=== PATIENT | male | born 1950 | race Caucasian/White ===

== ENCOUNTER → 2016-09-05 | Outpatient (CLI) | payer MEDICARE ==
[2015-09-25 16:35] VITALS: BP 125/81
[~2016-09-05] MED LIST: ASPI81TA50 PO; METF500T4 PO; SIMV10TA3 PO
--- NOTE | 2016-09-05 09:20 | KCIC ---
Indication: Right upper quadrant abdominal pain. The pancreas was poorly visualized. The inferior vena cava and proximal aorta were also poorly visualized due to overlying bowel gas. Mid and distal aorta are normal caliber without evidence of aneurysm. The liver is enlarged at 16.9 cm. There is diffuse increased echogenicity consistent with fatty infiltration. There are multiple liver cysts present. The largest appears to be septated measuring 3.9 cm in diameter. The portal vein is patent. Gallbladder is without stones or sludge. No wall thickening or pericholecystic fluid is seen. There is no biliary ductal dilatation. Right kidney is unremarkable. There is no ascites. IMPRESSION: 1. Hepatomegaly and fatty infiltration of the liver. There are multiple liver cysts present as well. 2. No evidence of cholelithiasis or acute cholecystitis. Electronically signed by: James Bush MD (09/05/2016 9:16 AM)
== END | disposition home or self-care (01) ==
LOC: KCIC US 07:29
PROVIDERS: ATTEND Nurse Practitioner Family
DX: R10.11 Right upper quadrant pain (principal); K76.0 Fatty (change of) liver, not elsewhere classified; R16.0 Hepatomegaly, not elsewhere classified
CPT/HCPCS: 76705

== ENCOUNTER → 2017-02-14 | Outpatient (CLI) | payer MEDICARE ==
[2015-09-25 16:35] VITALS: BP 125/81
--- NOTE | 2017-02-14 12:01 | KCIC ---
EXAM: Chest, 2 views. HISTORY: Cough. COMPARISON: 02/11/2017 FINDINGS: Frontal and lateral views of the chest are obtained. There is persistent right upper lobe opacity superimposed on coarse diffuse increased interstitial markings. There is no consolidation, effusion or pneumothorax. The heart is normal in size. There is biapical pleural parenchymal scarring. IMPRESSION: Stable right upper lobe opacity possibly due to focal pneumonic infiltrate. This is superimposed on suspected chronic interstitial changes. Continued short-term follow-up is recommended to confirm resolution and exclude underlying neoplasm. Electronically signed by: Lisset Pickens MD (02/14/2017 11:58 AM) [facility]
== END | disposition home or self-care (01) ==
LOC: KCIC 11:11
PROVIDERS: ATTEND Nurse Practitioner Family
DX: R91.8 Other nonspecific abnormal finding of lung field (principal); R05 Cough; R93.8 Abnormal findings on diagnostic imaging of other specified body structures
CPT/HCPCS: 71020

== ENCOUNTER → 2017-02-18 | Outpatient (CLI) | payer MEDICARE ==
[2015-09-25 16:35] VITALS: BP 125/81
--- NOTE | 2017-02-18 12:35 | KCIC ---
CT chest without contrast History: Chronic cough.. 35 year smoking history. Abnormality on x-ray. Technique: No intravenous contrast per request. Multiplanar reformatted images were obtained. Comparison: None are available Exposure: One or more of the following individualized dose reduction techniques were utilized for this examination: 1. Automated exposure control 2. Adjustment of the mA and/or kV according to patient size 3. Use of iterative reconstruction technique. Findings: Vascular structures: Limited exam without contrast. Mild atheromatous calcifications. No evidence of aneurysm. Lymph nodes: Moderate mediastinal lymph node enlargement, particularly around the trachea and aortopulmonary window. Largest measures 22 mm. Thyroid gland:Visualized aspect is unremarkable. Heart: Mild coronary calcification. Pleural spaces: No significant effusion Lungs: Interstitial infiltrates in the right upper lobe, right lower lobe and to a lesser extent right middle lobe. Interstitial and airspace infiltrate in the left lower lobe and to a much lesser extent left upper lobe and lingula. Noncalcified nodule identified in the right lower lobe, along the major fissure, measures 11 mm diameter. Trachea and central airways: Patent Bones: No destructive process identified. Degenerative changes of the spine. Upper abdomen: Slices obtained through the upper most abdomen are limited by the noncontrast technique. Multiple low-density lesions of the liver, measuring up to 4 cm diameter, and the larger of these demonstrate water density, compatible with cysts. Impression: 1. Moderate mediastinal lymph node enlargement, nonspecific but could be of neoplastic etiology. 2. 11 mm noncalcified pulmonary nodule in the right lower lobe, at the major fissure, potentially neoplastic. 3. Infiltrates in both lungs. Recommend short-term CT chest follow-up to document resolution. Electronically signed by: Mamadou Delatorre MD (02/18/2017 12:32 PM) [id number]
== END | disposition home or self-care (01) ==
LOC: KCIC CT 10:40
PROVIDERS: ATTEND Nurse Practitioner Family
DX: R59.9 Enlarged lymph nodes, unspecified (principal); Z87.891 Personal history of nicotine dependence
CPT/HCPCS: 71250

== ENCOUNTER → 2017-05-02 | Outpatient (CLI) | payer MEDICARE | END | disposition home or self-care (01) | LOC: KCIC CT 08:47 | DX: J84.9 Interstitial pulmonary disease, unspecified (principal); J47.0 Bronchiectasis with acute lower respiratory infection; I27.21 Secondary pulmonary arterial hypertension; Z87.891 Personal history of nicotine dependence | CPT/HCPCS: 71250 ==

== ENCOUNTER → 2017-05-20 | Day surgery (SDC) | payer MEDICARE ==
[~2017-05-20] MED LIST changes: -ASPI81TA50 PO; +EPINEPHrine 1 MG/ML VIAL SQ; +HYDROmorphone 2 MG/ML VIAL IV; +IV RINGERS,LACTATED 1000ML 1,000 ML IV; +LIDOCAINE 1% PF 2 ML VIAL. ID; -METF500T4 PO; +MIDAZOLAM HCL/PF 2 MG/2 ML VIAL. IV; +MORPHINE SULFATE 2 MG/ML DISP.SYRIN. IV; +ONDANSETRON PF 4 MG/2 ML VIAL. IV; +PROCHLORPERAZINE 10 MG/2 ML VIAL. IV; +PROPOFOL 20 ML IV; -SIMV10TA3 PO; +fentaNYL PF VIAL 100 MCG/2 ML VIAL IV
[2017-05-20 12:44] LABS: ADD MAN DIFF? NO
[2017-05-20 12:46] LABS: BASO # 0.1 x10^3/uL (0.0-0.2); BASO % 1 % (0-3); EOS # 0.4 x10^3/uL (0.0-0.7); EOS % 4 % (0-3); HEMATOCRIT 43.6 % (39.0-53.0); HEMOGLOBIN 14.8 g/dL (13.0-17.5); LYMPH # 1.8 x10^3/uL (1.0-4.8); LYMPH % 16 % (24-48); MEAN CORPUSCULAR HEMOGLOBIN 31 pg (25-35); MEAN CORPUSCULAR HGB CONC 34 g/dL (31-37); MEAN CORPUSCULAR VOLUME 91 fL (79-100); MONO # 0.8 x10^3/uL (0.0-1.1); MONO % 8 % (0-9); NEUT % 72 % (31-73); PLATELET COUNT 231 x10^3/uL (140-400); RED BLOOD COUNT 4.78 x10^6/uL (4.30-5.70); RED CELL DISTRIBUTION WIDTH 14.4 % (11.5-14.5); WHITE BLOOD COUNT 11.2 x10^3/uL (4.0-11.0)
[2017-05-20 12:52] LABS: POC GLUCOSE 201 mg/dL (70-99)
[2017-05-20] MEDS: IV RINGERS,LACTATED 1000ML 1,000 ML IV ×2 (12:53)
[2017-05-20 12:54] LABS: INR 1.1 (0.8-1.1); PROTHROMBIN TIME PATIENT 13.5 SEC (11.7-14.0)
[2017-05-20] MEDS: ALBUTEROL SULFATE 2.5 MG/3 ML NEBU. IH ×2 (13:10)
== END | disposition home or self-care (01) ==
LOC: SURG 11:55
DX: J84.9 Interstitial pulmonary disease, unspecified (principal); E11.42 Type 2 diabetes mellitus with diabetic polyneuropathy; J44.9 Chronic obstructive pulmonary disease, unspecified; I10 Essential (primary) hypertension; F41.9 Anxiety disorder, unspecified; F32.9 Major depressive disorder, single episode, unspecified; Z87.891 Personal history of nicotine dependence; Z79.899 Other long term (current) drug therapy; Z79.01 Long term (current) use of anticoagulants; Z86.69 Personal history of other diseases of the nervous system and sense organs; Z87.39 Personal history of other diseases of the musculoskeletal system and connective tissue; Z86.39 Personal history of other endocrine, nutritional and metabolic disease
CPT/HCPCS: 31622; 31624; 36415; 82962; 85025; 85610; 87070; 87102; 87116; 87205; 88112; 94640; J2704; J7613

== ENCOUNTER 2017-06-16 08:42 | Day surgery (SDC) | payer MEDICARE ==
[2017-06-16] MEDS ORDERED: fentaNYL PF VIAL 100 MCG/2 ML VIAL IV ×2 (09:00)
[2017-06-16] MEDS ORDERED: MIDAZOLAM HCL/PF 2 MG/2 ML VIAL. IV (09:00)
[2017-06-16] MEDS ORDERED: LIDOCAINE 1% PF 2 ML VIAL. ID (09:00)
[2017-06-16 09:43] LABS: ADD MAN DIFF? NO
[2017-06-16 09:45] LABS: BASO # 0.1 x10^3/uL (0.0-0.2); BASO % 1 % (0-3); EOS # 0.5 x10^3/uL (0.0-0.7); EOS % 5 % (0-3); HEMATOCRIT 44.2 % (39.0-53.0); HEMOGLOBIN 14.9 g/dL (13.0-17.5); LYMPH # 1.9 x10^3/uL (1.0-4.8); LYMPH % 21 % (24-48); MEAN CORPUSCULAR HEMOGLOBIN 31 pg (25-35); MEAN CORPUSCULAR HGB CONC 34 g/dL (31-37); MEAN CORPUSCULAR VOLUME 91 fL (79-100); MONO # 0.7 x10^3/uL (0.0-1.1); MONO % 8 % (0-9); NEUT # 6.1 x10^3uL (1.8-7.7); NEUT % 65 % (31-73); PLATELET COUNT 203 x10^3/uL (140-400); RED BLOOD COUNT 4.87 x10^6/uL (4.30-5.70); RED CELL DISTRIBUTION WIDTH 12.9 % (11.5-14.5); WHITE BLOOD COUNT 9.3 x10^3/uL (4.0-11.0)
[2017-06-16] MEDS: IV RINGERS,LACTATED 1000ML 1,000 ML IV ×2 (09:46→13:48)
[2017-06-16 09:57] LABS: PARTIAL THROMBOPLASTIN TIME 21 SEC (24-38)
[2017-06-16 09:58] LABS: INR 1.1 (0.8-1.1); PROTHROMBIN TIME PATIENT 13.4 SEC (11.7-14.0)
[2017-06-16 10:02] LABS: ANION GAP 13 (6-14); BLOOD UREA NITROGEN 15 mg/dL (8-26); CALCIUM 9.4 mg/dL (8.5-10.1); CARBON DIOXIDE 26 mmol/L (21-32); CHLORIDE 100 mmol/L (98-107); CREATININE 1.1 mg/dL (0.7-1.3); GFR 66.4; GLUCOSE 329 mg/dL (70-99); POTASSIUM 3.6 mmol/L (3.5-5.1); SODIUM 139 mmol/L (136-145)
[2017-06-16] MEDS ORDERED: ROCURONIUM 50 MG/5 ML VIAL. (10:18)
[2017-06-16] MEDS ORDERED: PROPOFOL 20 ML IV (10:18)
[2017-06-16] MEDS ORDERED: ONDANSETRON PF 4 MG/2 ML VIAL. (10:18)
[2017-06-16] MEDS ORDERED: LIDOCAINE 2% PF Vial for OR 5 ML VIAL. (10:18)
[2017-06-16] MEDS ORDERED: DEXAMETHASONE SOD PHOS 20 MG/5 ML VIAL. (10:18)
[2017-06-16] MEDS ORDERED: fentaNYL PF VIAL 100 MCG/2 ML VIAL (10:18)
[2017-06-16] MEDS ORDERED: IV RINGERS,LACTATED 1000ML 1,000 ML IV (13:47)
[2017-06-16] MEDS ORDERED: BUPIVACAINE MPF 0.5% 30 ML VIAL. (14:02)
[2017-06-16] MEDS: LIDOCAINE 1% 20 ML VIAL. INJ (15:27)
[2017-06-16] MEDS: BUPIVACAINE 0.5% 50 ML VIAL. (15:27)
[2017-06-16] MEDS ORDERED: NEOSTIGMINE 10 MG/10 ML VIAL. (15:52)
[2017-06-16] MEDS ORDERED: GLYCOPYRROLATE 1 MG/5 ML VIAL. (15:52)
[2017-06-16] MEDS ORDERED: SEVOFLURANE 61 TO 120 MINUTES. IH (16:29)
[2017-06-16 17:17] LABS: POC GLUCOSE 220 mg/dL (70-99)
[2017-06-16] MEDS: ALBUTEROL SULFATE 2.5 MG/3 ML NEBU. NEB (17:46)
[2017-06-16] MEDS: HYDROcodone/APAP 7.5/325MG 1 TAB TABLET PO (18:11)
== END 2017-06-16 18:25 | disposition home or self-care (01) ==
LOC: SURG 08:42
DX: J84.9 Interstitial pulmonary disease, unspecified (principal); R59.0 Localized enlarged lymph nodes; I10 Essential (primary) hypertension; N40.0 Benign prostatic hyperplasia without lower urinary tract symptoms; E78.00 Pure hypercholesterolemia, unspecified; F41.9 Anxiety disorder, unspecified; G89.4 Chronic pain syndrome; H81.20 Vestibular neuronitis, unspecified ear; M19.90 Unspecified osteoarthritis, unspecified site; E11.9 Type 2 diabetes mellitus without complications; Z98.890 Other specified postprocedural states; Z79.4 Long term (current) use of insulin; Z79.01 Long term (current) use of anticoagulants; Z79.84 Long term (current) use of oral hypoglycemic drugs
CPT/HCPCS: 36415; 80048; 82962; 85025; 85610; 85730; 87071; 87075; 87102; 87116; 87205; 88305; 88331; 94640; C1769; J0690; J1100; J2405; J2704; J2710; J3010; J3490; J7613

== ENCOUNTER 2017-06-16 08:52 | Outpatient (CLI) | payer MEDICARE ==
[~2017-06-16 08:52] MED LIST changes: +BUPIVACAINE MPF 0.5% 30 ML VIAL.; -EPINEPHrine 1 MG/ML VIAL SQ; -HYDROmorphone 2 MG/ML VIAL IV; -IV RINGERS,LACTATED 1000ML 1,000 ML IV; +LIDOCAINE 1% 20 ML VIAL.; -LIDOCAINE 1% PF 2 ML VIAL. ID; -MIDAZOLAM HCL/PF 2 MG/2 ML VIAL. IV; -MORPHINE SULFATE 2 MG/ML DISP.SYRIN. IV; -ONDANSETRON PF 4 MG/2 ML VIAL. IV; -PROCHLORPERAZINE 10 MG/2 ML VIAL. IV; -PROPOFOL 20 ML IV; -fentaNYL PF VIAL 100 MCG/2 ML VIAL IV
[2017-08-06] MEDS: ZOLPIDEM 5 MG TABLET. PO (22:30)
== END 2017-08-06 | disposition home or self-care (01) ==
LOC: RT 08:52 → SLPLAB 08-06 18:57
DX: G47.33 Obstructive sleep apnea (adult) (pediatric) (principal); I10 Essential (primary) hypertension; E11.9 Type 2 diabetes mellitus without complications; Z87.891 Personal history of nicotine dependence
CPT/HCPCS: 95810; J3490

== ENCOUNTER → 2017-08-22 | Outpatient (CLI) | payer MEDICARE | END | disposition home or self-care (01) | LOC: KCIC CT 08:27 | DX: J84.89 Other specified interstitial pulmonary diseases (principal); I10 Essential (primary) hypertension; E11.9 Type 2 diabetes mellitus without complications; J44.9 Chronic obstructive pulmonary disease, unspecified; Z87.891 Personal history of nicotine dependence | CPT/HCPCS: 71250 ==

== ENCOUNTER 2017-09-23 13:14 | Inpatient (IN) | payer MEDICARE ==
[2017-09-23] MEDS: IV RINGERS,LACTATED 1000ML 1,000 ML IV (07:00)
[~2017-09-23 13:14] MED LIST changes: -BUPIVACAINE MPF 0.5% 30 ML VIAL.; +IV RINGERS,LACTATED 1000ML 1,000 ML IV; -LIDOCAINE 1% 20 ML VIAL.; +LIDOCAINE 1% PF 2 ML VIAL. ID; +MORPHINE SULFATE 2 MG/ML DISP.SYRIN. IV; +ONDANSETRON PF 4 MG/2 ML VIAL. IV; +PROCHLORPERAZINE 10 MG/2 ML VIAL. IV; +ceFAZolin 2GM PREMIX 2 GM/50 ML BAG IV; +fentaNYL PF VIAL 100 MCG/2 ML VIAL IV
[2017-09-23] MEDS ORDERED: SURGICEL HEMOSTAT 4X8 EACH. (13:31)
[2017-09-23 13:55] LABS: ADD MAN DIFF? NO
[2017-09-23] MEDS ORDERED: SEVOFLURANE > 120 MINUTES. IH (13:56)
[2017-09-23] MEDS ORDERED: fentaNYL PF VIAL 100 MCG/2 ML VIAL ×2 (13:56→15:34)
[2017-09-23] MEDS ORDERED: NEOSTIGMINE 10 MG/10 ML VIAL. (13:56)
[2017-09-23] MEDS ORDERED: MIDAZOLAM HCL/PF 2 MG/2 ML VIAL. (13:56)
[2017-09-23] MEDS ORDERED: ROCURONIUM 50 MG/5 ML VIAL. (13:57)
[2017-09-23] MEDS ORDERED: GLYCOPYRROLATE 1 MG/5 ML VIAL. (13:57)
[2017-09-23] MEDS ORDERED: DEXAMETHASONE SOD PHOS 20 MG/5 ML VIAL. (13:58)
[2017-09-23] MEDS ORDERED: ONDANSETRON PF 4 MG/2 ML VIAL. (13:58)
[2017-09-23] MEDS ORDERED: PROPOFOL 20 ML IV (13:58)
[2017-09-23] MEDS ORDERED: LIDOCAINE 2% PF Vial for OR 5 ML VIAL. (13:58)
[2017-09-23] MEDS ORDERED: PHENYLEPHRINE in 0.9% NACL PF 1 MG/10 ML SYRINGE. IV (13:59)
[2017-09-23 14:00] LABS: BASO % 0 % (0-3); EOS # 0.2 x10^3/uL (0.0-0.7); EOS % 2 % (0-3); HEMOGLOBIN 14.8 g/dL (13.0-17.5); LYMPH # 1.3 x10^3/uL (1.0-4.8); LYMPH % 16 % (24-48); MEAN CORPUSCULAR HEMOGLOBIN 31 pg (25-35); MEAN CORPUSCULAR HGB CONC 34 g/dL (31-37); MEAN CORPUSCULAR VOLUME 89 fL (79-100); MONO # 0.6 x10^3/uL (0.0-1.1); MONO % 7 % (0-9); NEUT # 6.1 x10^3uL (1.8-7.7); NEUT % 75 % (31-73); PLATELET COUNT 230 x10^3/uL (140-400); RED BLOOD COUNT 4.83 x10^6/uL (4.30-5.70); RED CELL DISTRIBUTION WIDTH 13.1 % (11.5-14.5); WHITE BLOOD COUNT 8.1 x10^3/uL (4.0-11.0)
[2017-09-23 14:07] LABS: INR 1.1 (0.8-1.1); PARTIAL THROMBOPLASTIN TIME 29 SEC (24-38); PROTHROMBIN TIME PATIENT 13.5 SEC (11.7-14.0)
[2017-09-23 14:15] LABS: ANION GAP 13 (6-14); CARBON DIOXIDE 24 mmol/L (21-32); CHLORIDE 98 mmol/L (98-107); POTASSIUM 3.2 mmol/L (3.5-5.1); SODIUM 135 mmol/L (136-145)
[2017-09-23] MEDS ORDERED: FAMOTIDINE 20 MG/2 ML VIAL (14:56)
[2017-09-23] MEDS ORDERED: ePHEDrine PF IN SALINE 50 MG/5 ML DISP.SYRIN IV (15:21)
[2017-09-23] MEDS ORDERED: VASOPRESSIN 20 UNIT/ML VIAL. (15:28)
[2017-09-23] MEDS: LIDOCAINE 1% PF 30 ML VIAL. (15:31)
[2017-09-23] MEDS: BUPIVACAINE MPF 0.5% 30 ML VIAL. (15:31)
[2017-09-23] MEDS ORDERED: SEVOFLURANE 61 TO 120 MINUTES. IH (16:11)
[2017-09-23] MEDS ORDERED: PROCHLORPERAZINE 10 MG/2 ML VIAL. IV (16:15)
[2017-09-23] MEDS ORDERED: 0.9 % SODIUM CHLORIDE 10 ML DISP.SYRIN. IV (16:15)
[2017-09-23] MEDS ORDERED: METOCLOPRAMIDE HCL 10 MG/2 ML VIAL. IV (16:15)
[2017-09-23 16:29] LABS: POC GLUCOSE 250 mg/dL (70-99)
[2017-09-23] MEDS ORDERED: ceFAZolin SODIUM 1 GM in IV DEXTROSE 5% 50 ML IV (16:30)
[2017-09-23] MEDS: NALOXONE 0.4 MG/ML VIAL. IV (16:47)
[2017-09-23] MEDS: INSULIN ASPART 100 UNIT/ML 10ML VIAL. SQ (17:05)
[2017-09-23] MEDS: MORPHINE SULFATE 2 MG/ML DISP.SYRIN. IV (17:12)
[2017-09-23] MEDS ORDERED: KETOROLAC 30 MG/ML INJ. (17:22)
[2017-09-23] MEDS: KETOROLAC 15 MG/ML VIAL. IV (17:24)
[2017-09-23] MEDS: fentaNYL PF VIAL 100 MCG/2 ML VIAL IV ×3 (17:28→18:18)
[2017-09-23] MEDS ORDERED: ONDANSETRON PF 4 MG/2 ML VIAL. IV (18:00)
[2017-09-23] MEDS: SENNOSIDES/DOCUSATE 8.6/50MG TABLET. PO (20:49)
[2017-09-23] MEDS: oxyCODONE/APAP 5/325 1 TAB TABLET PO (21:01)
[2017-09-24] MEDS: MORPHINE SULFATE 2 MG/ML DISP.SYRIN. IV (00:17)
[2017-09-24 05:33] LABS: HEMATOCRIT 35.4 % (39.0-53.0); HEMOGLOBIN 12.4 g/dL (13.0-17.5); MEAN CORPUSCULAR HEMOGLOBIN 31 pg (25-35); MEAN CORPUSCULAR HGB CONC 35 g/dL (31-37); MEAN CORPUSCULAR VOLUME 89 fL (79-100); PLATELET COUNT 185 x10^3/uL (140-400); RED BLOOD COUNT 3.99 x10^6/uL (4.30-5.70); RED CELL DISTRIBUTION WIDTH 13.5 % (11.5-14.5); WHITE BLOOD COUNT 8.4 x10^3/uL (4.0-11.0)
[2017-09-24 06:10] LABS: ANION GAP 9 (6-14); BLOOD UREA NITROGEN 15 mg/dL (8-26); CALCIUM 8.4 mg/dL (8.5-10.1); CARBON DIOXIDE 26 mmol/L (21-32); CHLORIDE 100 mmol/L (98-107); CREATININE 1.1 mg/dL (0.7-1.3); GFR 66.4; GLUCOSE 284 mg/dL (70-99); POTASSIUM 4.5 mmol/L (3.5-5.1); SODIUM 135 mmol/L (136-145)
[2017-09-24] MEDS: KETOROLAC 15 MG/ML VIAL. IV (06:14)
[2017-09-24] MEDS: HEPARIN PF for SUB-Q USE 5,000 UNIT/0.5 ML VIAL. SQ (06:19)
[2017-09-24] MEDS: oxyCODONE/APAP 5/325 1 TAB TABLET PO (08:44)
[2017-09-24] MEDS: SENNOSIDES/DOCUSATE 8.6/50MG TABLET. PO (09:38)
== END 2017-09-24 11:25 | disposition home or self-care (01) | DRG 163 ==
LOC: OPSVCIP 13:14 → 2 SOUTH 19:43
PROC: 0BBC4ZZ Excision of Right Upper Lung Lobe, Percutaneous Endoscopic Approach (ICD-10-PCS; principal; 2017-09-23 14:55)
PROC: 0W9940Z Drainage of Right Pleural Cavity with Drainage Device, Percutaneous Endoscopic Approach (ICD-10-PCS; 2017-09-23 14:55)
DX: J84.9 Interstitial pulmonary disease, unspecified (principal); J96.00 Acute respiratory failure, unspecified whether with hypoxia or hypercapnia; I10 Essential (primary) hypertension; E78.5 Hyperlipidemia, unspecified; G47.33 Obstructive sleep apnea (adult) (pediatric); F41.9 Anxiety disorder, unspecified; M19.90 Unspecified osteoarthritis, unspecified site; E11.9 Type 2 diabetes mellitus without complications; R59.0 Localized enlarged lymph nodes; Z79.891 Long term (current) use of opiate analgesic; G89.29 Other chronic pain
CPT/HCPCS: 36415; 71045; 80048; 80051; 82962; 85025; 85027; 85610; 85730; 87071; 87075; 87102; 87116; 87205; 88307; 93005; A7015; C1782; J0690; J1100; J1815; J1885; J2001; J2250; J2270; J2310; J2370; J2405; J2704; J2710; J3010; J3490; J7120; S0028

== ENCOUNTER → 2017-10-10 | Outpatient (CLI) | payer MEDICARE | END | disposition home or self-care (01) | LOC: RAD 13:24 | DX: Z48.813 Encounter for surgical aftercare following surgery on the respiratory system (principal); J43.8 Other emphysema; I10 Essential (primary) hypertension; E11.9 Type 2 diabetes mellitus without complications; Z98.890 Other specified postprocedural states | CPT/HCPCS: 71046 ==

== ENCOUNTER → 2017-12-29 | Outpatient (CLI) | payer MEDICARE ==
[2017-09-24 07:00] VITALS: BP 102/50
[~2017-12-29] MED LIST changes: +ALPR1TAB2 PO; +AMLO5TAB7 PO; +ASPI81TA50 PO; +BREO ELLIPTA 11 EACH IH; +FLUO20CA8 PO; +GLIM1TAB2 PO; +HYDR-2762 PO; -IV RINGERS,LACTATED 1000ML 1,000 ML IV; -LIDOCAINE 1% PF 2 ML VIAL. ID; +LOSA100T7 PO; +METF500T16 PO; -MORPHINE SULFATE 2 MG/ML DISP.SYRIN. IV; -ONDANSETRON PF 4 MG/2 ML VIAL. IV; +OXYC-323 PO; -PROCHLORPERAZINE 10 MG/2 ML VIAL. IV; +SENN-22 PO; +SIMV10TA3 PO; +SITA100T PO; +TAMS0.4C2 PO; -ceFAZolin 2GM PREMIX 2 GM/50 ML BAG IV; -fentaNYL PF VIAL 100 MCG/2 ML VIAL IV
--- NOTE | 2017-12-29 10:43 | KCIC ---
CT MAXILLOFACIAL WO CONTRAST Indication: Facial injury after a fall. Patient fell 3 weeks ago. Nasal pain. Left eye tenderness. Exposure: One or more of the following individualized dose reduction techniques were utilized for this examination: 1. Automated exposure control 2. Adjustment of the mA and/or kV according to patient size 3. Use of iterative reconstruction technique. TECHNIQUE: Multiplanar reconstructions are reviewed at bone algorithm of the facial bones. No contrast. Comparison: None are available. Contrast: None Nasal bones are slightly deviated to the left, compatible with a mild fracture although age is indeterminate by the appearance. Orbital floors are intact. No other fracture is identified. Minimal mucosal thickening of the left maxillary sinus. Mild ethmoid sinus mucosal thickening. Minimal frontal sinus mucosal thickening. No fluid levels. The globes and orbital contents appear symmetric and within normal limits. IMPRESSION: 1. Mildly displaced nasal bone fracture, age indeterminate. 2. Mild paranasal sinus disease. Electronically signed by: Mamadou Delatorre MD (12/29/2017 10:39 AM) [facility]
== END | disposition home or self-care (01) ==
LOC: KCIC CT 09:14
PROVIDERS: ATTEND Nurse Practitioner Family
DX: S02.2XXA Fracture of nasal bones, initial encounter for closed fracture (principal); J32.9 Chronic sinusitis, unspecified; I10 Essential (primary) hypertension; E11.9 Type 2 diabetes mellitus without complications; E78.5 Hyperlipidemia, unspecified; E78.00 Pure hypercholesterolemia, unspecified; J43.8 Other emphysema; Z87.891 Personal history of nicotine dependence; Z86.39 Personal history of other endocrine, nutritional and metabolic disease; Z87.39 Personal history of other diseases of the musculoskeletal system and connective tissue; Z86.69 Personal history of other diseases of the nervous system and sense organs; W19.XXXA Unspecified fall, initial encounter; Y93.89 Activity, other specified; Y92.89 Other specified places as the place of occurrence of the external cause; Y99.8 Other external cause status
CPT/HCPCS: 70486

== ENCOUNTER → 2018-02-19 | Outpatient (CLI) | payer MEDICARE ==
[2017-09-24 07:00] VITALS: BP 102/50
--- NOTE | 2018-02-19 14:32 | KCIC ---
CT sinus without contrast History: Recent fracture, chronic sinusitis. Comparison: CT face superior 2017. Technique: CT of the sinuses was performed without intravenous contrast. Axial, sagittal, and coronal reconstructions were obtained. Exposure: One or more of the following individualized dose reduction techniques were utilized for this examination: 1. Automated exposure control 2. Adjustment of the mA and/or kV according to patient size 3. Use of iterative reconstruction technique Findings: Mild bilateral frontal sinus mucosal thickening is seen, may be slightly worse from previous study. There is moderate opacification of ethmoid air cells, similar to previous study. Sphenoid sinus appears clear. Right maxillary sinus is clear. There is mild left maxillary sinus mucosal disease. Overall degree of paranasal sinus disease is fairly similar to previous study. No mucoperiosteal reaction is identified. Right ostiomeatal unit is patent. Left ostiomeatal unit is opacified by mucosal thickening. Bilateral nasal bone deformities are similar to previous study. Bilateral orbits and orbital contents appear intact. IMPRESSION: 1. Mild paranasal sinus disease, fairly similar to previous study. Electronically signed by: Mamadou Campuzano MD (02/19/2018 2:28 PM) [place] [id number]
== END | disposition home or self-care (01) ==
LOC: KCIC CT 12:19
DX: J32.9 Chronic sinusitis, unspecified (principal)
CPT/HCPCS: 70486

== ENCOUNTER → 2018-04-02 | Outpatient (CLI) | payer MEDICARE ==
[2017-09-24 07:00] VITALS: BP 102/50
[~2018-04-02] MED LIST changes: -HYDR-2762 PO; +HYDR-2765 PO; +LOSA100T14 PO; -LOSA100T7 PO; -OXYC-323 PO; +OXYC1TAB15 PO
--- NOTE | 2018-04-02 17:11 | KCIC ---
Chest, PA and Lateral: Technique: PA and lateral views of the chest were obtained. History: Chronic cough. Comparison: 10/10/2017. Findings: Low lung volumes accentuate heart size and pulmonary vascularity. Mild prominent appearing interstitial lung markings identified in the bilateral lungs probably chronic interstitial changes or interstitial infiltrates. Moderate degenerative changes thoracic spine. IMPRESSION: Mild prominent appearing interstitial lung markings identified in the bilateral lungs probably chronic interstitial changes or interstitial infiltrates. If there is clinical suspicion for fibrosis consider high-resolution CT. Electronically signed by: Abran Vasquez MD (04/02/2018 5:07 PM) [place] [id number]
== END | disposition home or self-care (01) ==
LOC: KCIC 16:00
PROVIDERS: ATTEND Internal Medicine Critical Care Medicine
DX: R06.02 Shortness of breath (principal)
CPT/HCPCS: 71046

== ENCOUNTER 2018-04-27 15:23 | Emergency (ER) | payer MEDICARE ==
[~2018-04-27] VITALS: Ht 177.8 cm; Wt 81.2 kg
[2018-04-27] MEDS ORDERED: MORPHINE SULFATE 10 MG/ML VIAL. SQ ONE (18:00)
--- NOTE | 2018-04-27 19:12 | RAD ---
Examination: VENOUS LOWER EXTREMITY RIGHT History: RT KNEE PAIN NO KNOWN INJURY UNABLE TO BEAR WEIGHT Comparison/Correlation: None Findings: Right lower ratio. Venous duplex ultrasound exam was performed utilizing color Doppler, color Doppler, and grayscale imaging. Compression and augmentation utilized. Right common femoral vein, superficial femoral vein, greater saphenous vein, profunda femoris vein, posterior tibial and peroneal veins are normal. No thrombus. Normal compressibility and phasicity. Impression: No right lower extremity DVT. Electronically signed by: David Chinchilla MD (04/27/2018 7:08 PM) [facility]
--- NOTE | 2018-04-27 20:04 | PHYS DOC ---
Past Medical History Past Medical History: Anxiety, Bronchitis, CHF, Diabetes-Type II, High Cholesterol, Hypertension, Pneumonia, Other Additional Past Medical Histor: borderline DM II, falls, leg fx Past Surgical History: Other Additional Past Surgical Histo: shoulder sx, knee sx Alcohol Use: Rarely Drug Use: None Adult General Chief Complaint Chief Complaint: LOWER EXT PAIN HPI HPI Patient is a 67 year old [f__sex] who presents with [] Review of Systems Review of Systems Constitutional: Denies fever or chills [] Eyes: Denies change in visual acuity, redness, or eye pain [] HENT: Denies nasal congestion or sore throat [] Respiratory: Denies cough or shortness of breath [] Cardiovascular: No additional information not addressed in HPI [] GI: Denies abdominal pain, nausea, vomiting, bloody stools or diarrhea [] : Denies dysuria or hematuria [] Musculoskeletal: Denies back pain or joint pain [] Integument: Denies rash or skin lesions [] Neurologic: Denies headache, focal weakness or sensory changes [] Endocrine: Denies polyuria or polydipsia [] All other systems were reviewed and found to be within normal limits, except as documented in this note. Current Medications Current Medications Current Medications Medications (Trade) Dose Ordered Sig/Phil Start Time Stop Time Status Last Admin Dose Admin Morphine Sulfate (Morphine Sulfate) 10 mg 1X ONCE 04/27/18 18:00 04/27/18 18:02 DC 04/27/18 18:06 10 MG Allergies Allergies Allergies Coded Allergies Type Severity Reaction Last Updated Verified No Known Drug Allergies 09/23/17 No Physical Exam Physical Exam Constitutional: Well developed, well nourished, no acute distress, non-toxic appearance. [] HENT: Normocephalic, atraumatic, bilateral external ears normal, oropharynx moist, no oral exudates, nose normal. [] Eyes: PERRLA, EOMI, conjunctiva normal, no discharge. [] Neck: Normal range of motion, no tenderness, supple, no stridor. [] Cardiovascular:Heart rate regular rhythm, no murmur [] Lungs & Thorax: Bilateral breath sounds clear to auscultation [] Abdomen: Bowel sounds normal, soft, no tenderness, no masses, no pulsatile masses. [] Skin: Warm, dry, no erythema, no rash. [] Back: No tenderness, no CVA tenderness. [] Extremities: No tenderness, no cyanosis, no clubbing, ROM intact, no edema. [] Neurologic: Alert and oriented X 3, normal motor function, normal sensory function, no focal deficits noted. [] Psychologic: Affect normal, judgement normal, mood normal. [] Current Patient Data Vital Signs Vital Signs Date Time Temp Pulse Resp B/P (MAP) Pulse Ox O2 Delivery O2 Flow Rate FiO2 04/27/18 18:06 20 04/27/18 17:35 97.4 108 143/96 (112) 93 Room Air 97.4 EKG EKG [] Radiology/Procedures Radiology/Procedures [] Course & Med Decision Making Course & Med Decision Making Pertinent Labs and Imaging studies reviewed. (See chart for details) [] Dragon Disclaimer Dragon Disclaimer This electronic medical record was generated, in whole or in part, using a voice recognition dictation system. Departure Departure Impression: Primary Impression: Knee pain Disposition: HOME, SELF-CARE Condition: STABLE Referrals: HERMINIO HANCOCK MD (PCP) Patient Instructions: Knee Pain Additional Instructions: Wear the knee immobilizer for comfort. Follow-up with your primary care provider for possible referral to orthopedics. You may take ibuprofen or Tylenol for pain. LAY MCNEIL APRN Apr 27, 2018 20:04
[2018-04-27 20:11] VITALS: BP 144/98
--- NOTE | 2018-04-28 00:35 | RAD ---
Examination: KNEE RIGHT 3V History: ER PATIENT. ATRAUMATIC RIGHT KNEE PAIN. NO PRIORS Comparison/Correlation: None Findings: Total 3 images of the right knee were obtained including crosstable lateral view. Joint spaces are normal. No acute fracture or bony destruction. Small knee joint effusion is questioned. Spurring of the patella is minimal. Mild narrowing of the patellofemoral compartment may present. Impression: Mild degenerative change. Electronically signed by: David Chinchilla MD (04/28/2018 12:30 AM) [facility]
== END 2018-04-27 20:20 | disposition home or self-care (01) ==
LOC: ER 15:23
DX: M25.561 Pain in right knee (principal); M25.461 Effusion, right knee; M79.604 Pain in right leg; E78.00 Pure hypercholesterolemia, unspecified; I11.0 Hypertensive heart disease with heart failure; I50.9 Heart failure, unspecified; F41.9 Anxiety disorder, unspecified
CPT/HCPCS: 73562; 93971; 96372; 99284; J2270

== ENCOUNTER → 2018-07-03 | Outpatient (CLI) | payer MEDICARE ==
[~2018-07-03] MED LIST changes: +AMLO5TAB10 PO; -AMLO5TAB7 PO
--- NOTE | 2018-07-03 12:09 | KCIC ---
PQRS Compliance Statement: One or more of the following individualized dose reduction techniques were utilized for this examination: 1. Automated exposure control 2. Adjustment of the mA and/or kV according to patient size 3. Use of iterative reconstruction technique CT chest without contrast July 03, 2018 INDICATION: Pulmonary fibrosis, chest congestion for 6 months. COMPARISON: CT chest August 22, 2017 TECHNIQUE: Multiple axial images of the chest were obtained without intravenous contrast. Coronal and sagittal reformats are provided. FINDINGS: Thyroid gland is normal in appearance. There is a 6 mm short axis lymph node in the right paratracheal space. Additional lower right paratracheal lymph node measures 6 mm, stable. There is an AP window lymph node which measures 8 mm, stable. Additional AP window lymph node measures 12 mm, stable. Subcarinal lymph node measures 13 mm. Evaluation of hilar lymphadenopathy is limited by lack of contrast contrast. Heart size is within normal limits. Trace pericardial fluid may be physiologic. Thoracic aorta is normal in course and caliber measuring up to 3.4 cm. Minor calcified atheromatous plaque present. Thoracic esophagus is normal in appearance. Stable reticular interstitial changes are identified in the lungs with involvement predominantly involving the right upper lobe. There is traction bronchiectasis in the right upper lobe with areas of honeycombing. There is honeycombing along the superior segment right lower lobe. Reticular interstitial thickening is noted in the inferior lingula. There is bronchial wall thickening compatible with bronchitis. No focal airspace consolidation is identified. No new or enlarging solid noncalcified nodules are identified. No pleural effusions. No pulmonary vascular congestion or pneumothorax. Simple appearing hypoattenuating hepatic lesions most favor simple cysts, not significantly changed since prior examination. Adrenal glands are normal. There is moderate fatty atrophy of the pancreas. No suspicious abdominal abnormality is identified. No osseous abnormality is identified. IMPRESSION: Chronic interstitial changes are identified with areas of honeycombing involving the right upper lobe and superior segment right lower lobe. Bronchial wall thickening is compatible with bronchitis. There are areas of traction bronchiectasis in the right upper lobe. Findings may be seen in the setting of sarcoidosis/silicosis or alternate inhalational disorders. Usual interstitial pneumonia may have this appearance however is more typically seen with lower lung zone predominance. Findings are atypical for NSIP. Chronic hypersensitivity pneumonitis may have similar appearance. No new areas of airspace consolidation to suggest superimposed pneumonia. Electronically signed by: Veronica Escobedo MD (07/03/2018 12:07 PM) [facility]
== END | disposition home or self-care (01) ==
LOC: KCIC CT 09:23
PROVIDERS: ATTEND Internal Medicine Critical Care Medicine
DX: J47.9 Bronchiectasis, uncomplicated (principal); J84.10 Pulmonary fibrosis, unspecified; K86.89 Other specified diseases of pancreas; I70.0 Atherosclerosis of aorta; I10 Essential (primary) hypertension; E11.9 Type 2 diabetes mellitus without complications; Z87.891 Personal history of nicotine dependence
CPT/HCPCS: 71250

== ENCOUNTER → 2018-07-27 | Outpatient (CLI) | payer MEDICARE ==
[~2018-07-27] MED LIST changes: +MAG HYDROX/ALUMINUM HYD/SIMETH 30 ML ORAL.SUSP PO ONE; +ZOLPIDEM 5 MG TABLET. PO ONE
--- NOTE | 2018-07-28 09:31 | SLEEP ---
DATE OF STUDY: 07/27/2018 PRIMARY CARE PHYSICIAN: Dr. Roslyn Dominguez REFERRING PHYSICIAN: Dr. Luis Antonio Oconnor. The patient is 68 years old who weighs 196 pounds. The patient's [place] score was 11. The patient underwent split night study performed at [facility]. During the night study, the patient spent 513 minutes in bed and slept for 365 minutes with a sleep efficiency of 71%. Sleep latency was 67 minutes with absent REM sleep. Overall, sleep architecture showed increased stage 1 and stage 2 sleep, absent N3 and absent REM sleep. During the initial diagnostic portion of the study, the patient slept for 72 minutes. During that time, there were 40 mixed apneas, 10 obstructive apneas, no central apneas and 45 hypopneas. The patient's apnea hypopnea index was 80 per hour. No supine or REM sleep seen. Nocturnal oximetry study revealed mean oxygen saturation of 92% with the lowest of 80%. 22% of time oxygen saturation remained between 80% and 89%. EKG monitoring revealed normal sinus rhythm. Average heart rate 78 beats per minute, no sustained arrhythmias observed. No PLMS observed. The patient was started on CPAP at a pressure of 5 cm water and titrated all the way up to 20 cm of water. Due to persistent respiratory events, the patient was switched to BiPAP at 24/18. At that pressure, the patient slept for 43 minutes. The patient had supine sleep throughout, but no REM sleep observed. The patient's AHI was reduced to 4 per hour and was mostly related to the leak. The patient used small size nasal pillows. Oxygen saturation remained above 89%. IMPRESSION: 1. Severe sleep apnea-hypopnea syndrome at an AHI of 80 per hour. 2. Nocturnal hypoxia secondary to obstructive sleep apnea, but resolved with CPAP. 3. No clinically significant PLMS. RECOMMENDATIONS: 1. BiPAP at a pressure of 24/18 completely eliminated the patient's sleep apnea and it should be used on a nightly basis. 2. Follow up in 4-6 weeks to assess compliance with BiPAP and to document clinical improvement. 3. Weight loss is advised. 4. Avoid [employer] depressants. 5. Caution regarding driving until symptoms of sleep apnea resolve with the use of BiPAP. MISSAEL U. JENSEN, MD DR: LAI/bisi JOB#: [id number] / [id number] Roslyn Mitchell GEORGE MD
== END | disposition home or self-care (01) ==
LOC: RT 19:47
PROVIDERS: ATTEND Internal Medicine Pulmonary Disease
DX: G47.33 Obstructive sleep apnea (adult) (pediatric) (principal)
CPT/HCPCS: 95810

== ENCOUNTER → 2019-03-17 | Outpatient (CLI) | payer MEDICARE ==
[~2019-03-17] MED LIST changes: +FLUO20CA19 PO; -FLUO20CA8 PO; -GLIM1TAB2 PO; +GLIM1TAB3 PO; -MAG HYDROX/ALUMINUM HYD/SIMETH 30 ML ORAL.SUSP PO ONE; +SIMV10TA15 PO; -SIMV10TA3 PO; -ZOLPIDEM 5 MG TABLET. PO ONE
--- NOTE | 2019-03-17 14:15 | KCIC ---
Bilateral diagnostic digital mammograms: Reason for examination: Left breast lump with occasional pain for the past year. Interpretation is made with the benefit of CAD. The skin and nipples show no abnormalities. No abnormal lymph nodes are seen. The breast parenchyma is predominantly fatty. (Breast density: Category A.) There is however moderate asymmetric gynecomastia in the left breast and some minimal gynecomastia in the right breast. There are no other dominant masses, suspicious calcifications or architectural distortions. Impression: Moderate asymmetric gynecomastia in the left breast with some minimal gynecomastia in the right breast. Ultrasound to follow. BI-RADS Category 0: Incomplete: Need additional imaging evaluation. "Our facility is accredited by the [employer] Mammography Program.": Left breast ultrasound: Ultrasound examination of the left breast and axilla was performed. Comparison images in the retroareolar right breast were performed. There is moderate gynecomastia in the retroareolar position of the left breast with no focal nodule present. No abnormal vascularity is present. There is some minimal right breast gynecomastia in comparison. IMPRESSION: Moderate gynecomastia in the left breast. Minimal gynecomastia in the right breast. Recommend 6 month follow-up to evaluate stability. BI-RADS Category 3: Probably Benign. "Our facility is accredited by the [employer] Mammography Program." This patient's information has been entered into a reminder system for the patient to be notified with the results of her examination and a target date for the next mammogram. Electronically signed by: Angela Flores MD (03/17/2019 2:12 PM) [facility]
== END | disposition home or self-care (01) ==
LOC: KCIC MAMMO 12:39
PROVIDERS: ATTEND Family Medicine
DX: N62 Hypertrophy of breast (principal); N63.20 Unspecified lump in the left breast, unspecified quadrant
CPT/HCPCS: 76641; 77066

== ENCOUNTER → 2020-02-04 | Outpatient (CLI) | payer MEDICARE ==
[~2020-02-04] MED LIST changes: +AMLO-186 PO; -AMLO5TAB10 PO; -FLUO20CA19 PO; +FLUO20CA20 PO; -GLIM1TAB3 PO; +GLIM1TAB7 PO; +REGADENOSON 0.4 MG/5 ML DISP.SYRIN. IV ONE
--- NOTE | 2020-02-04 11:08 | CARD ---
MR#: [id number] Date of Study: 02/04/2020 Ordering Physician: REINA LY, Referring Physician: REINA LY, Tech: Shea Johnston APPROVED REPORT EXAM: Two-dimensional and M-mode echocardiogram with Doppler and color Doppler. Other Information Quality : AverageHR: 100bpm INDICATION Dyspnea RISK FACTORS Diabetes Previous smoker 2D DIMENSIONS RVDd3.8 (2.9-3.5cm)Left Atrium(2D)3.4 (1.6-4.0cm) IVSd1.0 (0.7-1.1cm)Aortic Root(2D)3.2 (2.0-3.7cm) LVDd3.9 (3.9-5.9cm)LVOT Diameter2.1 (1.8-2.4cm) PWd0.9 (0.7-1.1cm)LVDs2.3 (2.5-4.0cm) FS (%) 41.5 %SV49.0 ml LVEF(%)73.0 (>50%) Aortic Valve AoV Peak Xavier.117.7cm/sAoV VTI19.7cm AO Peak GR.5.5mmHgLVOT Peak Xavier.92.9cm/s LVOT VTI 16.44cmAO Mean GR.3mmHg CASEY (VMAX)2.18bx3ETY (VTI)2.97cm2 Mitral Valve MV E Fhamjvfo27.5cm/sMV DECEL [id number] MV A Vloabbhj66.2cm/sMV E Mean Gr.3mmHg MV EBO38jkU/A Ratio0.8 MVA (PHT)3.55cm2 TDI E/Lateral E'9.5E/Medial E'10.0 Pulmonary Valve PV Peak Remxzngx544.8cm/sPV Peak Grad.6mmHg Tricuspid Valve TR P. Woriaiuu627ym/sTR Peak Gr.29mmHg LEFT VENTRICLE The left ventricle is normal size. There is normal left ventricular wall thickness. The left ventricu lar systolic function is normal. The Ejection Fraction is 65%. There is normal LV segmental wall dru on. Transmitral Doppler flow pattern is Grade I-abnormal relaxation pattern. RIGHT VENTRICLE The right ventricle is normal size. There is normal right ventricular wall thickness. The right ventr icular systolic function is normal. ATRIA The left atrium size is normal. The right atrium size is normal. The interatrial septum is intact wit h no evidence for an atrial septal defect or patent foramen ovale as noted on 2-D or Doppler imaging. AORTIC VALVE The aortic valve is calcified but opens well. Doppler and Color Flow revealed no significant aortic r egurgitation. There is no significant aortic valvular stenosis. Calculated aortic valve area is 3.05 cm2 with maximum pressure gradient of 6 mmHg and mean pressure gradient of 4 mmHg. MITRAL VALVE The mitral valve is normal in structure and function. There is no evidence of mitral valve prolapse. There is no mitral valve stenosis. Doppler and Color Flow revealed no mitral valve regurgitation note d. TRICUSPID VALVE The tricuspid valve is normal in structure and function. Doppler and Color Flow revealed trace tricus pid regurgitation with an estimated PAP of 32 mmHg. There is no tricuspid valve stenosis. PULMONIC VALVE The pulmonic valve is not well visualized. Doppler and Color Flow revealed trace pulmonic valvular re gurgitation. GREAT VESSELS The aortic root is normal in size. The ascending aorta is normal in size. The IVC was not visualized. PERICARDIAL EFFUSION There is no evidence of significant pericardial effusion. Critical Notification Critical Value: No <Conclusion> The left ventricular systolic function is normal. The Ejection Fraction is 65%. There is normal LV segmental wall motion. Transmitral Doppler flow pattern is Grade I-abnormal relaxation pattern. Trace tricuspid regurgitation with an estimated PAP of 32 mmHg. There is no evidence of significant pericardial effusion. Signed by : Reina Ly, Electronically Approved : 02/04/2020 11:07:42
--- NOTE | 2020-02-04 14:28 | RAD ---
MR#: [id number] Date of Study: 02/04/2020 Ordering Physician: REINA RODRÍGUEZ, Referring Physician: SPEEDY AMADOR Tech: RT Tulio BaughR) (N) APPROVED REPORT Test Type: Pharmacological Stress Nurse/Tech: Michael Delaney RN Test Indications: SANCHEZ Cardiac History: HTN, Arrythmias, See EMR Medications: See EMR Medical History: DM, Fatty liver disease, Quit smoking in 2014, See EMR Resting ECG: SR Resting Heart Rate: 84 bpm Resting Blood Pressure: 129/82mmHg Pretest Chest Pain: No chest pain Nurse/Tech Notes Lungs CTA, Heart tones regular Consent: The procedure was explained to the patient in lay terms. Informed consent was witnessed. Pollo eout was entered into [employer]. History and Stress Test performed by JORGE [facility]. Details Pharmacologic stress testing was performed using 0.4mg per 5ml of regadenoson given intravenously ove r 7-10 seconds. Stress Symptoms No chest pain or symptoms. POST EXERCISE Reason for Termination: Infusion complete Max HR: 107 bpm Max Blood Pressure: 135/63mmHg Blood Pressure response to exercise: Normal blood pressure response during stress. Heart Rate response to exercise: WNL Chest Pain: No. Arrhythmia: No. ST Change: No. INTERPRETATION Stress EKG Conclusion: Baseline EKG showed sinus rhythm. No ischemic changes at peak stress. No arr hythmias. Imaging Protocol IMAGE PROTOCOL: Rest Tc-99m/stress Tc-99m 1 day Rest: Stress: Viability: Radiopharm.Tc99m [id number] Sestamibi Dose10.8mCi 33mCi Duration 13min. 13min. Img Date 02/04/2020 02/04/2020 Inj-Img [id number]. 60min. Rest Admin Site:IV - Left AntecubitalAdministrator:RT Amauri (R)(N) Stress Admin Site: IV - Left AntecubitalAdministrator: JORGE Hearn STRESS DATA End Diast. Vol.44.0mlLVEDV index BSA21.0ml End Syst. Vol.7.0mlLVESV index BSA3.0ml Myocardial Mass84.0gEject. Hndllplj53.0% Stress Scores Regional WT0.00Summed WT1.00 Regional WM0.00Summed WM1.00 Study quality was good. Left Ventricular size was Normal at Rest and Stress. Lung uptake was . Left Ventricular ejection fraction is 84%. The rest and stress images show normal perfusion, normal contraction and thickening. LV Perf. Quant 17 Seg. SSS0.00 17 Seg. SRS0.00 17 Seg. SDS0.00 Stress Defect Extent (% LAD)0.00Rest Defect Extent (% LAD)0.00Rev. Defect Extent (% LAD)0.00 Stress Defect Extent (% LCX) 0.00Rest Defect Extent (% LCX)0.00Rev. Defect Extent (% LCX)0.00 Stress Defect Extent (% RCA)0.00Rest Defect Extent (% RCA)0.00Rev. Defect Extent (% RCA)0.00 Stress Defect Extent (% KIERAN)0.00Rest Defect Extent (% KIERAN)0.00Rev. Defect Extent (% KIERAN)0.00 Conclusion 1. Regadenoson cardioisotope stress test did not show any evidence of ischemia or infarct. 2. Normal left ventricular systolic function with ejection fraction calculated at 84%. 3. Low risk for cardiac events. Signed by : Reina Rodríguez, Electronically Approved : 02/04/2020 14:27:52
== END ==
LOC: NM 10:44
PROVIDERS: ATTEND Internal Medicine Cardiovascular Disease
DX: I35.1 Nonrheumatic aortic (valve) insufficiency (principal); I10 Essential (primary) hypertension
CPT/HCPCS: 78452; 93017; 93306; A9500; J2785